=== PATIENT | female | born 1935 | race Hispanic/Latino ===

== ENCOUNTER 2021-01-30 16:02 | Emergency (ER) | payer MEDICARE ==
[2021-01-30 16:07] VITALS: BP 151/70
[2021-01-30] MEDS ORDERED: METH4TAB3 PO (17:23)
== END 2021-01-30 17:31 | disposition home or self-care (01) ==
LOC: EDH 16:02
DX: S83.92XA Sprain of unspecified site of left knee, initial encounter (principal); E11.9 Type 2 diabetes mellitus without complications; I10 Essential (primary) hypertension; Z90.11 Acquired absence of right breast and nipple; Z85.3 Personal history of malignant neoplasm of breast; X50.1XXA Overexertion from prolonged static or awkward postures, initial encounter; Y93.01 Activity, walking, marching and hiking; Y92.89 Other specified places as the place of occurrence of the external cause; Y99.8 Other external cause status
CPT/HCPCS: 73562

== ENCOUNTER → 2022-06-21 | Outpatient (CLI) | payer MEDICARE ==
[~2022-06-21] MED LIST: ASPI-1005 PO; ATOR40TA71 PO; CARV3.12 PO; CLOP-31 PO; FURO40TA5 PO; LETR2.5T7 PO; RANO500T2 PO; SACU1TAB PO
[2022-06-21 12:48] LABS: CREATININE 1.9 mg/dL (0.5-1.5); POTASSIUM 4.6 mmol/L (3.5-5.1)
== END | disposition home or self-care (01) ==
LOC: LAB 08:38
PROVIDERS: ATTEND Internal Medicine Cardiovascular Disease
DX: I50.22 Chronic systolic (congestive) heart failure (principal)
CPT/HCPCS: 36415; 80048